=== PATIENT | female | born 1970 | race Caucasian/White ===

== ENCOUNTER 2017-10-24 08:15 | Day surgery (SDC) | payer OTHER ==
[2017-10-24] MEDS ORDERED: NABUMETONE500 MG PO (11:53)
[2017-10-24] MEDS ORDERED: ZITHROMAX500 MG PO (11:53)
== END 2017-10-24 16:20 | disposition home or self-care (01) ==
LOC: CIR.AMB 08:15
DX: N93.8 Other specified abnormal uterine and vaginal bleeding (principal)

== ENCOUNTER 2018-05-07 15:48 | Inpatient (IN) | payer OTHER ==
[~2018-05-07] VITALS: Ht 160 cm; Wt 72.6 kg
[~2018-05-07 15:48] MED LIST: NABUMETONE500 MG PO; ZITHROMAX500 MG PO
[2018-05-22] MEDS ORDERED: DOCUSATE SODIU100 MG PO (10:05)
[2018-05-22] MEDS ORDERED: GAS RELIEF125 MG PO (10:05)
[2018-05-22] MEDS ORDERED: IBUPROFEN800 MG PO (10:05)
== END 2018-05-22 10:31 | DRG 742 ==
LOC: OB/GYN 05-19 08:30 → O/R 05-19 08:30 → SURH 05-19 09:45 → OB/GYN 05-19 11:04 → SURH 05-19 14:15 → OB/GYN 05-22 10:31
PROVIDERS: Obstetrics & Gynecology; Urology
PROC: 0T788DZ Dilation of Bilateral Ureters with Intraluminal Device, Via Natural or Artificial Opening Endoscopic (ICD-10-PCS; 2018-05-19)
PROC: 0UQG7ZZ Repair Vagina, Via Natural or Artificial Opening (ICD-10-PCS; 2018-05-19)
PROC: 0UT90ZZ Resection of Uterus, Open Approach (ICD-10-PCS; principal; 2018-05-19 14:00)
PROC: 0DNW0ZZ Release Peritoneum, Open Approach (ICD-10-PCS; 2018-05-19 14:15)
DX: N80.0 Endometriosis of uterus (principal); N99.821 Postprocedural hemorrhage of a genitourinary system organ or structure following other procedure; N72 Inflammatory disease of cervix uteri; N84.0 Polyp of corpus uteri; D64.89 Other specified anemias